=== PATIENT | female | born 1965 | race Caucasian/White ===

== ENCOUNTER 2021-10-28 09:15 | Emergency (ER) | payer BC ==
[2021-10-28 09:24] VITALS: BP 105/77
[2021-10-28] MEDS ORDERED: DEXAMETHASONE 10 MG/ML VIAL PO STA (09:37)
[2021-10-28] MEDS ORDERED: CHERRY SYRUP 10 ML UDC PO ONE (09:37)
--- NOTE | 2021-10-28 09:40 | ED Physician Documentation ---
PD HPI HEENT - Stated complaint Stated Complaint: THROAT SWELLING/FEVER/CHILLS - Chief complaint Chief Complaint: Heent - History obtained from History obtained from: Patient, Family - History of Present Illness Timing - onset: Yesterday Timing - duration: Days (1) Timing - details: Gradual onset, Still present Location: Throat Worsens: Swalllowing Associated symptoms: Congestion, Headache. No: Fever, Cough Similar symptoms before: Diagnosis (ENT infection) Recently seen: Not recently seen - Additional information Additional information: 56-year-old female with a history of lupus is visiting from [place] and she has developed a sore throat. She has had this happen to her number of times previously and she recalls that she is on some Plaquenil and has stage III kidney disease. She is concerned about getting dehydrated as it is painful to even to swallow. Review of Systems Constitutional: denies: Fever Eyes: denies: Decreased vision Ears: denies: Ear pain Nose: reports: Rhinorrhea / runny nose, Congestion Throat: reports: Sore throat Cardiac: denies: Chest pain / pressure, Palpitations Respiratory: denies: Dyspnea, Cough GI: denies: Abdominal Pain, Nausea, Vomiting, Constipation, Diarrhea : denies: Dysuria, Frequency Skin: denies: Rash Musculoskeletal: reports: Extremity pain, Joint pain. denies: Neck pain, Back pain PD PAST MEDICAL HISTORY - Present Medications Home Medications: Ambulatory Orders Medication Instructions Recorded Confirmed Amox/Clav 875/125 [Augmentin] 1 each PO Q12H #20 tablet 10/28/21 Atorvastatin [Lipitor] 20 mg PO DAILY 10/28/21 10/28/21 Esomeprazole Magnesium [Nexium] 40 mg PO DAILY 10/28/21 10/28/21 Ferrous Sulfate 325 mg PO BID 10/28/21 10/28/21 Hydroxychloroquine [Plaquenil] 200 mg PO DAILY 10/28/21 10/28/21 Pregabalin [Lyrica] 150 mg PO BID 10/28/21 10/28/21 Rivaroxaban [Xarelto] 10 mg PO DAILY 10/28/21 10/28/21 atenoloL [Tenormin] 25 mg PO BID 10/28/21 10/28/21 azaTHIOprine [Imuran] 50 mg PO DAILY 10/28/21 10/28/21 calcitrioL [Rocaltrol] 0.25 mcg PO DAILY 10/28/21 10/28/21 hydroCHLOROthiazide [Hydrodiuril] 25 mg PO DAILY 10/28/21 10/28/21 - Allergies Allergies/Adverse Reactions: Allergies Allergy/AdvReac Type Severity Reaction Status Date / Time Milk Containing Products AdvReac Nausea Verified 10/28/21 09:25 PD ED PE NORMAL - Vitals Vital signs reviewed: Yes (Tachycardic mild) - General General: Alert and oriented X 3, No acute distress, Well developed/nourished - HEENT HEENT: Atraumatic, PERRL, EOMI, Ears normal, Other (The tonsils are 2+ cryptic and exudative.) - Neck Neck: Supple, no meningeal sign, No bony TTP - Cardiac Cardiac: RRR, No murmur - Respiratory Respiratory: No respiratory distress, Clear bilaterally - Abdomen Abdomen: Normal bowel sounds, Soft, Non tender, Non distended, No organomegaly - Back Back: No CVA TTP, No spinal TTP - Derm Derm: Normal color, Warm and dry, No rash - Extremities Extremities: No deformity, No edema - Neuro Neuro: Alert and oriented X 3, handkerchief cutter 2-12 intact, No motor deficit, No sensory deficit, Normal speech Eye Opening: Spontaneous Motor: Obeys Commands Verbal: Oriented GCS Score: 15 - Psych Psych: Normal mood, Normal affect Results - Vitals Vitals: Vital Signs - 24 hr 10/28/21 09:19 Temperature 36.3 C L Heart Rate 103 H Respiratory 16 Rate Blood Pressure 105/77 O2 Saturation 98 Oxygen O2 Source Room air PD MEDICAL DECISION MAKING - ED course Complexity details: considered differential, d/w patient, d/w family ED course: 56-year-old female on immunosuppression with lupus is developed a sore throat with exudative tonsillitis. She has had this happen to her previously. She is mostly concerned that she will not be able to swallow adequately to stay hydrated. She is given a dose of dexamethasone 10 mg orally and we will place her on a course of Augmentin. The patient is grateful for treatment stating th at she has had to do this a number of times previously. Departure - Departure Disposition: 01 Home, Self Care Clinical Impression: Exudative tonsillitis Condition: Stable Instructions: ED Tonsillitis Follow-Up: [facility] [Provider Group] Prescriptions: Amox/Clav 875/125 [Augmentin] 1 each PO Q12H #20 tablet Comments: Abbie, today it looks like you have exudative tonsillitis and this is usually an opportunistic infection when your immune system is down. The recommendation is to drink additional fluids get plenty of rest and take the antibiotic as pres cribed. Augmentin has been E scribed to [facility] in [place]. Today you were given a single dose of dexamethasone 10 mg. This should have you feeling a bit better later on today.
[2021-10-28 09:58] LABS: RAPID STREP SCREEN Negative (Negative)
== END 2021-10-28 09:53 | disposition home or self-care (01) ==
LOC: ED 09:15
DX: J03.90 Acute tonsillitis, unspecified (principal)
CPT/HCPCS: 87070; 87430; 99283; A9270

== ENCOUNTER 2021-11-24 08:00 | Outpatient (CLI) | payer BC ==
--- NOTE | 2021-11-24 15:27 | XRAY Report ---
PROCEDURE: Foot 3 View LT INDICATIONS: PAIN IN LEFT FOOT; LUPUS; GOUT, ACUTE TECHNIQUE: 3 views of the foot were acquired. COMPARISON: None FINDINGS: Bones: No acute fractures and normal bone alignment. There is ill-defined noncorticated calcification lateral to the midfoot calcaneocuboid articulation, potentially tenderness. Periarticular erosion is present along the medial base of the first distal phalanx. No suspicious bony lesions. Soft tissues: No tibiotalar joint effusion. Mild swelling of the forefoot. Mild calcification at the Achilles tendon insertion. IMPRESSION: 1. Periarticular erosion at the first distal phalanx base may be secondary to gouty arthritis. 2. Possible tendinous or ligamentous calcification at the lateral midfoot. 3. No other suspicious soft tissue calcifications. Reviewed by: Yanet Lopez MD on 11/24/2021 3:26 PM PDT Approved by: Yanet Lopez MD on 11/24/2021 3:26 PM PDT Station ID: [id number]
== END 2021-11-24 23:59 | disposition home or self-care (01) ==
LOC: DI.N 08:00
PROVIDERS: ATTEND Registered Nurse
DX: L93.0 Discoid lupus erythematosus (principal); M10.9 Gout, unspecified; M85.88 Other specified disorders of bone density and structure, other site

== ENCOUNTER 2021-11-24 08:00 | Outpatient (CLI) | payer BC ==
[2021-11-24 18:21] LABS: % IRON SATURATION 15 % (20-50); ALBUMIN 3.6 g/dL (3.2-5.5); ALKALINE PHOSPHATASE 85 IU/L (42-121); ALT ALANINE AMINOTRANSFERASE 22 IU/L (10-60); AST ASPARTATE AMINOTRANSFERASE 20 IU/L (10-42); BILIRUBIN,TOTAL 0.3 mg/dL (0.2-1.0); BUN - BLOOD UREA NITROGEN 32 mg/dL (6-20); CARBON DIOXIDE - CO2 27 mmol/L (21-32); CHLORIDE 103 mmol/L (101-111); CREATININE 1.6 mg/dL (0.4-1.0); GFR - MDRD 34 (>89); GLUCOSE 117 mg/dL (70-100); IRON 54 ug/dL (28-170); POTASSIUM 4.8 mmol/L (3.5-5.0); SODIUM 141 mmol/L (135-145); TOTAL IRON BINDING CAPACITY 364 ug/dL (250-450); TOTAL PROTEIN 7.3 g/dL (6.7-8.2); TRANSFERRIN 260 mg/dL (192-382); URIC ACID 8.8 mg/dL (2.6-7.2)
[2021-11-24 18:27] LABS: BASOPHILS % (AUTO) 0.4 %; EOSINOPHILS # (AUTO) 0.1 10^3/uL (0.0-0.7); EOSINOPHILS % (AUTO) 0.9 %; HCT - HEMATOCRIT 32.7 % (37.0-47.0); HGB - HEMOGLOBIN 10.3 g/dL (12.0-16.0); LYMPHOCYTES % (AUTO) 20.1 %; MEAN CORPUSCULAR HEMOGLOBIN 28.4 pg (27.0-31.0); MEAN CORPUSCULAR HGB CONC 31.5 g/dL (32.0-36.0); MEAN CORPUSCULAR VOLUME 90.1 fL (81.0-99.0); MONOCYTES # (AUTO) 0.6 10^3/uL (0.0-1.0); MONOCYTES % (AUTO) 5.5 %; NEUTROPHILS # (AUTO) 7.2 10^3/uL (1.5-6.6); NEUTROPHILS % (AUTO) 72.5 %; PLT - PLATELET COUNT 312 10^3/uL (130-450); RED BLOOD COUNT 3.63 10^6/uL (4.20-5.40); RED CELL DISTRIBUTION WIDTH 14.2 % (12.0-15.0); WHITE BLOOD COUNT 9.9 x10^3/uL (4.8-10.8)
[2021-11-24 20:07] LABS: CRP - C-REACTIVE PROTEIN < 1.0 mg/dL (0-1.0)
== END 2021-11-24 23:59 | disposition home or self-care (01) ==
LOC: LAB.N 08:00
PROVIDERS: ATTEND Registered Nurse
DX: M79.672 Pain in left foot (principal); L93.0 Discoid lupus erythematosus; M10.9 Gout, unspecified
CPT/HCPCS: 36415; 80053; 82728; 83540; 84466; 84550; 85025; 85651; 86140

== ENCOUNTER 2021-12-27 08:00 | Outpatient (CLI) | payer BC ==
--- NOTE | 2021-12-28 12:20 | XRAY Report ---
PROCEDURE: Foot 3 View LT INDICATIONS: FOOT PAIN TECHNIQUE: 3 views of the foot were acquired. COMPARISON: Left foot radiographs 11/24/2021. FINDINGS: Bones: No acute fracture or dislocation visualized. Similar periarticular lucency at the base of the first digit distal phalanx. Periarticular lucencies also present at the fifth MTP joint. Soft tissues: No definite tibiotalar joint effusion. Similar ill-defined calcification adjacent to t he calcaneocuboid articulation. An achilles tendon enthesophyte is present. IMPRESSION: 1. No acute osseous abnormality. 2. Similar periarticular lucency at the base of the first digit distal phalanx. Periarticular lucenci es also present at the fifth MTP joint. Findings could represent sequela of gout/inflammatory arthrop athy. Reviewed by: Richmond Green MD on 12/28/2021 9:02 AM PDT Approved by: Richmond Green MD on 12/28/2021 9:02 AM PDT Station ID: [id number]
== END 2021-12-27 23:59 | disposition home or self-care (01) ==
LOC: DI.WOS 08:00
PROVIDERS: ATTEND Orthopaedic Surgery
DX: M89.8X7 Other specified disorders of bone, ankle and foot (principal); R93.6 Abnormal findings on diagnostic imaging of limbs